=== PATIENT | male | born 1945 | race Caucasian/White ===

== ENCOUNTER → 2018-11-15 | Outpatient (CLI) | payer MEDICARE ==
[2018-11-15 10:38] LABS: BUN/CREATININE RATIO 14; CREATININE SERUM 1.18 MG/DL (0.60-1.30); GFR ESTIMATED > 60
--- NOTE | 2018-11-15 11:31 | Diagnostic Imaging Report ---
PROCEDURE: MRI left joint lower extremity without contrast. TECHNIQUE: Multiplanar, multisequence non contrast-enhanced MRI of the left lower extremity was accomplished. INDICATION: Chronic left knee pain. No known injury. COMPARISON: None. FINDINGS: No acute fracture or dislocation is seen in the left knee. Mild motion artifact is present. Alignment appears normal. There is no significant joint effusion. Small marginal osteophytes are noted at all three compartments. The articular cartilage in the patellofemoral compartment demonstrates mild surface irregularity and thinning with no large full-thickness defects. The articular cartilage in the medial compartment demonstrates moderate thinning with full-thickness defects at the peripheral tibial plateau. The articular cartilage in the lateral compartment demonstrates thinning with no large full-thickness defects. There is a complex tear of the posterior horn and body of the medial meniscus, with a prominent radial component posteriorly. There is partial extrusion of the meniscus. There is mild reactive bone marrow edema at the medial tibial plateau. No discrete tear is seen in the lateral meniscus. The anterior and posterior cruciate ligaments are intact. The medial collateral ligament demonstrates mild bowing and surrounding edema, likely due to the adjacent meniscal pathology. No discrete tear is seen. The lateral collateral ligamentous complex appears intact. The extensor mechanism is intact. The medial and lateral retinacula are intact. There is a very small Ulloa's cyst. IMPRESSION: 1. Complex tearing of the medial meniscus with prominent posterior radial component. 2. Mild cartilage loss and degenerative change at all three compartments of the left knee. 3. Very small Ulloa's cyst. Dictated by: Dictated on workstation # [id number]
== END ==
LOC: EDBD → RAD 09:46
PROVIDERS: ATTEND Family Medicine
DX: M23.204 Derangement of unspecified medial meniscus due to old tear or injury, left knee (principal); M17.12 Unilateral primary osteoarthritis, left knee; M71.22 Synovial cyst of popliteal space [Baker], left knee; M94.8X8 Other specified disorders of cartilage, other site; G57.30 Lesion of lateral popliteal nerve, unspecified lower limb
CPT/HCPCS: 36415; 73721; 82565; 84520

== ENCOUNTER → 2018-11-17 | Outpatient (CLI) | payer MEDICARE ==
[~2018-11-17] MED LIST: GADOBUTROL 7.5 MMOL/7.5 ML (GADAVIST) VIAL IV ONE
--- NOTE | 2018-11-17 09:46 | Diagnostic Imaging Report ---
CLINICAL INDICATION: Patient with low back pain especially on the right side. Patient has bilateral leg numbness, bilateral feet burning. EXAM: MRI of the lumbar spine performed without and with 7 cc of Gadavist IV contrast. Sagittal T2, sagittal T1, sagittal T1 fat-sat, sagittal T2 fat-sat, axial T1, axial T2, axial T1 post IV contrast, and sagittal T1 fat-sat post IV contrast. COMPARISON: None. FINDINGS: There is no abnormal IV contrast enhancement. There is no acute lumbar spine fracture or dislocation. There is a roughly 30-40% anterior wedge chronic compression deformity of the L1 vertebra. There is no retropulsed component. The visualized portions of the distal thoracic spinal cord, conus medullaris, and cauda equina nerve roots are unremarkable. The conus medullaris tip is seen at the upper L2 vertebral body level. There are degenerative spurs and facet arthropathy seen throughout the lumbar spine. There is no significant paraspinal soft tissue abnormality. T12-L1: There is a mild diffuse disc bulge and mild bilateral facet arthropathy. There is minimal impression upon the thecal sac. There is no significant neural foramen narrowing. L1-L2: There is a diffuse disc bulge with mild loss of intervertebral disc height. There is mild bilateral facet arthropathy. There is no significant central canal narrowing. There is mild right neural foramen narrowing and no significant left neural foramen narrowing. L2-L3: There is a diffuse disc bulge and mild bilateral facet arthropathy. There is mild central canal narrowing and mild to moderate bilateral neural foramen narrowing. L3-L4: There is a mild diffuse disc bulge and mild bilateral facet arthropathy. There is no significant central canal narrowing. There is mild right neural foramen narrowing and moderate left neural foramen narrowing. L4-5: There is minimal diffuse disc bulging and mild bilateral facet arthropathy. There is no significant central canal narrowing. There is mild bilateral neural foramen narrowing. L5-S1: There is a chronic compression deformity of the inferior endplate of the L5 vertebra. There is mild to moderate bilateral facet arthropathy with hypertrophic changes on the right side. There is mild bilateral neural foramen narrowing and no significant central canal narrowing. IMPRESSION: 1: There is no abnormal IV contrast enhancement seen on this exam. 2: There is chronic anterior wedge compression deformity of the L1 vertebra and chronic mild compression deformity of the inferior endplate of the L5 vertebra. 3: There is multilevel mild to moderate lumbar spine degenerative disc disease, as described above. Dictated by: Dictated on workstation # [id number]
== END ==
LOC: RAD 07:15
PROVIDERS: ATTEND Family Medicine
DX: M48.061 Spinal stenosis, lumbar region without neurogenic claudication (principal); M51.26 Other intervertebral disc displacement, lumbar region; M51.36 Other intervertebral disc degeneration, lumbar region; M51.25 Other intervertebral disc displacement, thoracolumbar region; M46.85 Other specified inflammatory spondylopathies, thoracolumbar region; M46.87 Other specified inflammatory spondylopathies, lumbosacral region; M43.8X7 Other specified deforming dorsopathies, lumbosacral region; G57.30 Lesion of lateral popliteal nerve, unspecified lower limb
CPT/HCPCS: 72158

== ENCOUNTER → 2021-12-06 | Outpatient (CLI) | payer MEDICARE ==
--- NOTE | 2021-12-06 16:07 | Diagnostic Imaging Report ---
EXAMINATION: Lumbar spine MRI, 12/06/2021. TECHNIQUE: Multiplanar, multisequence MRI of the lumbar spine was performed without contrast. INDICATION: Compression fracture. Back pain. COMPARISON: 11/17/2018. FINDINGS: There is a stable-appearing compression fracture at L1. This appears chronic. No new compression fracture is identified. Alignment of the spine is preserved. Tip of the conus is unremarkable in appearance and location. L1-L2: There is intervertebral disc space narrowing and disc desiccation with bilateral facet and ligamentum flavum hypertrophy. There is no central stenosis. There is moderate bilateral neural foraminal narrowing. L2-L3: There is intervertebral disc space narrowing, disc desiccation, and minimal broad-based bulging disc material with bilateral facet and ligamentum flavum hypertrophy. There is no central stenosis. There is moderate bilateral neural foraminal stenosis. L3-L4: There is disc desiccation with a mild broad-based bulging disc. There is bilateral facet and ligamentum flavum hypertrophy. There is no central narrowing. There is [id number] bilateral neural foraminal stenosis. L4-L5: There is disc desiccation with a mild broad-based bulging disc. There is bilateral facet and ligamentum flavum hypertrophy. There is no central stenosis. [id number] bilateral neural foraminal narrowing is noted. L5-S1: There is disc desiccation with minimal broad-based bulging disc material. There is bilateral facet and ligamentum flavum hypertrophy. There is no central narrowing. There is moderate bilateral neural foraminal narrowing. The visualized intra-abdominal structures appear unremarkable. IMPRESSION: 1. Chronic appearing compression fracture at L1 with multilevel degenerative findings as discussed above. Dictated by: Dictated on workstation # [id number]
== END ==
LOC: RAD 13:15
PROVIDERS: ATTEND Family Medicine
DX: M48.56XA Collapsed vertebra, not elsewhere classified, lumbar region, initial encounter for fracture (principal); M47.816 Spondylosis without myelopathy or radiculopathy, lumbar region; M47.817 Spondylosis without myelopathy or radiculopathy, lumbosacral region; M51.26 Other intervertebral disc displacement, lumbar region; M51.36 Other intervertebral disc degeneration, lumbar region; M51.37 Other intervertebral disc degeneration, lumbosacral region; M48.061 Spinal stenosis, lumbar region without neurogenic claudication; M48.07 Spinal stenosis, lumbosacral region; M24.28 Disorder of ligament, vertebrae
CPT/HCPCS: 72148

== ENCOUNTER 2023-02-03 11:18 | Emergency (ER) | payer MEDICARE ==
[~2023-02-03] VITALS: Ht 167.7 cm; Wt 74.8 kg
[2023-02-03] MEDS ORDERED: NS IV 1000 ML 1,000 ML IV STA (11:32)
--- NOTE | 2023-02-03 11:40 | ED General ---
General Chief Complaint: Fever-Adult/Adol Stated Complaint: GEN PAIN; LOW BP Source of Information: Patient, Family (son) Exam Limitations: Physical Impairments (hard of hearing) History of Present Illness Date Seen by Provider: Feb 03, 2023 Time Seen by Provider: 11:19 Initial Comments 77 yo male presenting with complaint of subjective fever last night and this am along with generalized body aches and pain. He has 4 days of having several small red spots on his right thigh and left hip. He was concerned it might be Shingles but it is not painful and it was itching some. He took an extra dose of his Hydrocodone for pain just a little before 10 am. He also took his prescribed medicines for anxiety and blood pressure. He had gone to Urgent Care and they felt his blood pressure was low and recommended he come to the ED to have blood work. Patient denies chest pain, abdominal pain, vomiting, diarrhea, headache, sore throat, pain with urination. He has a dry occasional cough. Timing/Duration: 1-2 Days Severity: Moderate Associated Systoms: No Chest Pain; Cough (dry occasional ); No Diaphoresis; Fever/Chills (subjective in last 24 hours); No Headaches; Malaise, Nausea/Vomiting (nausea when he eats but no vomiting), Rash (some itchy red spots to left inner thigh and right lateral hip for 4 days); No Seizure, No Shortness of Air, No Syncope; Weakness Allergies and Home Medications Allergies Coded Allergies: No Known Drug Allergies (Unverified , 02/03/23) Patient Home Medication List Home Medication List Reviewed: Yes Review of Systems Review of Systems Constitutional: see HPI EENTM: No epistaxis, No nose congestion, No throat pain Respiratory: see HPI; No short of breath, No stridor, No wheezing Cardiovascular: No chest pain Gastrointestinal: No abdominal pain; nausea; No vomiting Genitourinary: No dysuria Musculoskeletal: see HPI (generalized body aches/pain) Skin: see HPI Psychiatric/Neurological: Anxiety Past Egdqjww-[id number]-Nuyygn Hx Patient Social History Tobacco Use?: No Use of E-Cig and/or Vaping dev: No Substance use?: No Past Medical History Surgery/Hospitalization HX: Hypertension, hyperlipidemia, anxiety, depression, glaucoma, GERD, dementia, BPH, chronic pain, left TKA, History of Myeloma Surgeries: Yes Orthopedic (left TKA) Cardiac: Yes High Cholesterol, Hypertension Neurological: Yes Dementia Genitourinary: Yes Benign Prostatic Hyperpl Gastrointestinal: Yes Gastroesophageal Reflux Musculoskeletal: Yes Arthritis Endocrine: No HEENT: Yes Glaucoma Hearing Impairment: Hard of Hearing Psychosocial: Yes Anxiety, Depression Physical Exam Vital Signs Vital Signs - First Documented 02/03/23 11:20 Temp 36.5 Pulse 78 Resp 18 B/P (MAP) 123/62 (82) Pulse Ox 95 O2 Delivery Room Air Capillary Refill : Height, Weight, BMI Height: '" Weight: lbs. oz. kg; BMI Method: General Appearance: No Apparent Distress, WD/WN Eyes: Bilateral Eye PERRL, Bilateral Eye EOMI HEENT: PERRL/EOMI, Normal ENT Inspection, Pharynx Normal, Moist Mucous Membranes Neck: Full Range of Motion, Normal Inspection, Non Tender, Supple Respiratory: Chest Non Tender, Lungs Clear, Normal Breath Sounds, No Accessory Muscle Use, No Respiratory Distress Cardiovascular: Regular Rate, Rhythm, Normal Peripheral Pulses Gastrointestinal: Normal Bowel Sounds, No Pulsatile Mass, Non Tender, Soft Rectal: Deferred Extremity: Normal Capillary Refill, Normal Inspection, Non Tender, No Pedal Edema Neurologic/Psychiatric: Alert, Oriented x3, No Motor/Sensory Deficits, Normal 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, 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 as Tested Skin: Warm/Dry, Rash (a few erythematous circular lesions on left inner thigh and right hip) Focused Exam Lactate Level 02/03/23 11:20: Lactic Acid Level 1.91 Lactic Acid Level Laboratory Tests Test 02/03/23 11:20 Lactic Acid Level 1.91 MMOL/L (0.50-2.00) Progress/Results/Core Measures Suspected Sepsis SIRS Temperature: Pulse: Respiratory Rate: Laboratory Tests 02/03/23 11:20: White Blood Count 16.9H Blood Pressure / Mean: 02/03/23 11:20: Lactic Acid Level 1.91 Laboratory Tests 02/03/23 11:20: Creatinine 1.40H, Platelet Count 196, Total Bilirubin 1.1H Results/Orders Lab Results Laboratory Tests Test 02/03/23 11:20 02/03/23 11:30 02/03/23 12:40 Range/Units White Blood Count 16.9 H 4.3-11.0 10^3/uL Red Blood Count 4.35 4.30-5.52 10^6/uL Hemoglobin 14.7 13.3-17.7 g/dL Hematocrit 42 40-54 % Mean Corpuscular Volume 96 80-99 fL Mean Corpuscular Hemoglobin 34 25-34 pg Mean Corpuscular Hemoglobin Concent 35 32-36 g/dL Red Cell Distribution Width 12.1 10.0-14.5 % Platelet Count 196 130-400 10^3/uL Mean Platelet Volume 10.2 9.0-12.2 fL Immature Granulocyte % (Auto) 0 % Neutrophils (%) (Auto) 81 H 42-75 % Lymphocytes (%) (Auto) 12 12-44 % Monocytes (%) (Auto) 6 0-12 % Eosinophils (%) (Auto) 0 0-10 % Basophils (%) (Auto) 0 0-10 % Neutrophils # (Auto) 13.7 H 1.8-7.8 X 10^3 Lymphocytes # (Auto) 2.0 1.0-4.0 X 10^3 Monocytes # (Auto) 1.1 H 0.0-1.0 X 10^3 Eosinophils # (Auto) 0.0 0.0-0.3 10^3/uL Basophils # (Auto) 0.1 0.0-0.1 10^3/uL Immature Granulocyte # (Auto) 0.1 0.0-0.1 10^3/uL Neutrophils % (Manual) 82 % Lymphocytes % (Manual) 11 % Monocytes % (Manual) 7 % Platelet Estimate ADEQUATE Blood Morphology Comment NORMAL Sodium Level 142 135-145 MMOL/L Potassium Level 4.1 3.6-5.0 MMOL/L Chloride Level 102 98-107 MMOL/L Carbon Dioxide Level 26 21-32 MMOL/L Anion Gap 14 5-14 MMOL/L Blood Urea Nitrogen 20 H 7-18 MG/DL Creatinine 1.40 H 0.60-1.30 MG/DL Estimat Glomerular Filtration Rate 52 BUN/Creatinine Ratio 14 Glucose Level 177 H 70-105 MG/DL Lactic Acid Level 1.91 0.50-2.00 MMOL/L Calcium Level 10.1 8.5-10.1 MG/DL Corrected Calcium 9.8 8.5-10.1 MG/DL Total Bilirubin 1.1 H 0.1-1.0 MG/DL Aspartate Amino Transf (AST/SGOT) 24 5-34 U/L Alanine Aminotransferase (ALT/SGPT) 27 0-55 U/L Alkaline Phosphatase 85 40-136 U/L Total Protein 7.0 6.4-8.2 GM/DL Albumin 4.4 3.2-4.5 GM/DL Lipase 48 8-78 U/L Influenza Type A (RT-PCR) Not Detected Not Detecte Influenza Type B (RT-PCR) Not Detected Not Detecte SARS-CoV-2 RNA (RT-PCR) Not Detected Not Detecte Urine Color YELLOW Urine Clarity CLEAR Urine pH 6.5 5-9 Urine Specific Alvo 1.010 L 1.016-1.022 Urine Protein TRACE H NEGATIVE Urine Glucose (UA) NEGATIVE NEGATIVE Urine Ketones NEGATIVE NEGATIVE Urine Nitrite NEGATIVE NEGATIVE Urine Bilirubin NEGATIVE NEGATIVE Urine Urobilinogen 0.2 < = 1.0 MG/DL Urine Leukocyte Esterase NEGATIVE NEGATIVE Urine RBC (Auto) NEGATIVE NEGATIVE Urine RBC NONE /HPF Urine WBC RARE /HPF Urine Crystals NONE /LPF Urine Bacteria NEGATIVE /HPF Urine Casts NONE /LPF Urine Mucus SMALL H /LPF Urine Culture Indicated NO My Orders Orders - SHANTE HUTSON MD Comprehensive Metabolic Panel (02/03/23 11:31) Lipase (02/03/23 11:31) Ua Culture If Indicated (02/03/23 11:31) Ed Iv/Invasive Line Start (02/03/23 11:31) Cbc With Automated Diff (02/03/23 11:31) Lactic Acid Analyzer (02/03/23 11:31) Covid 19 Inhouse Test (02/03/23 11:31) Influenza A And B By Pcr (02/03/23 11:31) Ns Iv 1000 Ml (Sodium Chloride 0.9%) (02/03/23 11:32) Manual Differential (02/03/23 11:20) Vital Signs/I&O 02/03/23 02/03/23 11:20 13:25 Temp 36.5 Pulse 78 65 Resp 18 14 B/P (MAP) 123/62 (82) 109/51 Pulse Ox 95 95 O2 Delivery Room Air Room Air Capillary Refill : Progress Note #1: Progress Note Potential diagnosis of viral syndrome, medication side effect, electrolyte imbalance, dehydration, COVID, influenza. Obtain nasal swab for Covid and influenza. Establish peripheral IV access and send labs for complete blood count, comprehensive metabolic profile, lipase, lactic Acid, Urinalysis. His initial blood pressure on arrival to ED 6 was 123/62. Heart rate is in the 70s and sinus. Oxygen saturation is 95-98% on room air. He is afebrile at 36.5. Will administer 1 L of Normal Saline as IV fluid bolus for hydration and reported low blood pressure from Urgent Care. Progress Note #2: Time: 12:44 Progress Note On my personal interpretation and review his complete blood count showed an elevated white blood cell count of 16.9 but he had a normal differential with 82% neutrophils and 11% lymphocytes. He is not anemic with a hemoglobin of 14.7. He had normal platelets at 196. His comprehensive metabolic panel had shown mild elevation of his BUN to 20 and creatinine to 1.4. There is no baseline to compare to. His glucose was slightly elevated 177 but unknown when the last had anything to eat. His lactic acid was negative at 1.91. Lipase was normal at 48 count against pancreatitis. His swab to check for COVID was negative. His swab for influenza was negative for both influenza A and influenza B. Blood pressure remains stable at 103-122 for his systolic reading and diastolic 50-60. Currently he is 121/51. He just provided a urine specimen so will check to see if there is anything showing on that to indicate a reason for his generalized body aches. Progress Note #3: Time: 13:17 Progress Note Urinalysis shows no acute significant findings to account for the patient's symptoms. Specific gravity is 1.010 and he has trace amount of protein and mucus present but no nitrates, leukocyte esterase, white blood cells, bacteria to indicate an infection. Blood pressures have continued to remain stable fluctuating between systolic pressures of 10 3-1 22. He does not have any acute findings of infection on his physical exam and history. He does have a mild elevation of his white blood cell count but has a normal differential. Will encourage patient to stay well- hydrated and try and check back with his primary care provider about continued care. Warned to not take extra hydrocodone along with his blood pressure and anxiety medicines as they could cause his blood pressure to be lower and make him dizzy or feeling weak. After reviewing results with the patient and family I did clarify about his last oral intake since he had an elevated glucose of 177. He stated that he had not ate or drink anything since last night other than to take his medication this morning. Advised with the glucose of 177 if this was fasting then he would be at the very least prediabetic or diabetic and that could be contributing to him feeling more tired during the day as well as the body aches. He may still have a viral infection causing some of this. He denies any tick bites. He denies having any prior testing for sleep apnea. I encouraged him and his son to get established with a local provider or follow-up in [place] to check into his general health. Advised that he may need specific testing to look for diabetes as well as possibly a sleep study to check for sleep apnea. Departure Impression Primary Impression: Generalized body aches Additional Impression: Elevated fasting glucose Disposition: HOME, SELF-CARE Condition: Stable Departure-Patient Inst. Decision time for Depature: 13:20 Referrals: JOVITA ALEJO MD (PCP/Family) Primary Care Physician Patient Instructions: Fatigue ED, Muscle and Bone Pain (DC) Add. Discharge Instructions: Avoid taking extra doses of your hydrocodone as it could make you feel worse and drop your blood pressure down as well. Continue to stay well-hydrated and try and get plenty of rest. Check back with the clinic for continued concerns. If you continue to have subjective fevers and chills they may need to do some additional testing to try and see if you have an infection somewhere. Your test today did not show any specific source of infection. All discharge instructions reviewed with patient and/or family. Voiced understanding. SHANTE HUTSON MD Feb 03, 2023 11:40
[2023-02-03 12:22] LABS: CREATININE SERUM 1.4 MG/DL (0.60-1.30); POTASSIUM 4.1 MMOL/L (3.6-5.0)
[2023-02-03 12:23] LABS: ALBUMIN 4.4 GM/DL (3.2-4.5); BILIRUBIN,TOTAL 1.1 MG/DL (0.1-1.0); CALCIUM 10.1 MG/DL (8.5-10.1); HEMATOCRIT 42 % (40-54); HEMOGLOBIN 14.7 g/dL (13.3-17.7); MEAN CORPUSCULAR HEMOGLOBIN 34 pg (25-34); MEAN CORPUSCULAR HGB CONC 35 g/dL (32-36); MEAN CORPUSCULAR VOLUME 96 fL (80-99); WHITE BLOOD COUNT 16.9 10^3/uL (4.3-11.0)
[2023-02-03 12:24] LABS: BASOPHILS # (AUTO) 0.1 10^3/uL (0.0-0.1); BASOPHILS % (AUTO) 0 % (0-10); EOSINOPHILS % (AUTO) 0 % (0-10); LYMPHOCYTES % (AUTO) 12 % (12-44); MEAN PLATELET VOLUME 10.2 fL (9.0-12.2); MONOCYTES # (AUTO) 1.1 X 10^3 (0.0-1.0); MONOCYTES % (AUTO) 6 % (0-12); NEUTROPHILS # (AUTO) 13.7 X 10^3 (1.8-7.8); NEUTROPHILS % (AUTO) 81 % (42-75); PLATELET COUNT 196 10^3/uL (130-400)
[2023-02-03 12:25] LABS: LYMPHOCYTES % (MANUAL) 11 %; MONOCYTES % (MANUAL) 7 %; NEUTROPHILS % (MANUAL) 82 %; PLATELET ESTIMATE ADEQUATE; RBC MORPH NORMAL
[2023-02-03 13:12] LABS: BILIRUBIN,URINE NEGATIVE (NEGATIVE); CLARITY,URINE CLEAR; COLOR,URINE YELLOW; GLUCOSE, URINE (UA) NEGATIVE (NEGATIVE); KETONES,URINE NEGATIVE (NEGATIVE); LEUKOCYTE ESTERASE ,URINE NEGATIVE (NEGATIVE); NITRITE,URINE NEGATIVE (NEGATIVE); PH,URINE 6.5 (5-9); PROTEIN,URINE TRACE (NEGATIVE)
[2023-02-03 13:13] LABS: BACTERIA,URINE NEGATIVE /HPF; WBC,URINE RARE /HPF
[2023-02-03 13:25] VITALS: BP 109/51
== END 2023-02-03 13:27 | disposition home or self-care (01) ==
LOC: EDUNIT# 11:18 → ER FS 11:20
DX: R52 Pain, unspecified (principal); R73.9 Hyperglycemia, unspecified; I10 Essential (primary) hypertension; F41.9 Anxiety disorder, unspecified; Z79.899 Other long term (current) drug therapy; Z20.822 Contact with and (suspected) exposure to COVID-19
CPT/HCPCS: 36415; 80053; 81000; 83605; 83690; 85007; 85027; 87636; 96360